=== PATIENT | female | born 1995 | race Two or more races ===

== ENCOUNTER 2022-12-06 12:20 | Emergency (ER) | payer BC, MEDICAID ==
[~2022-12-06] VITALS: Ht 167.6 cm; Wt 65.0 kg
[2022-12-06] MEDS ORDERED: HYDROcodone-ACET 5/325MG TAB PO ONE (12:30)
[2022-12-06 12:37] VITALS: BP 136/97; PULSE 104; RESP 19; TEMP 98.7; O2SAT 94
[2022-12-06] MEDS ORDERED: IBUP1TAB5 PO (13:19)
[2022-12-06] MEDS ORDERED: MUPI2OIN2 EX (13:19)
[2022-12-06] MEDS ORDERED: CYCL-611 PO (13:19)
[2022-12-09] MEDS ORDERED: CEPH500C PO (15:01)
[2022-12-09] MEDS ORDERED: HYDR-4902 PO (15:45)
== END 2022-12-06 13:13 | disposition home or self-care (01) ==
LOC: ER 12:20
DX: S43.402A Unspecified sprain of left shoulder joint, initial encounter (principal); S46.912A Strain of unspecified muscle, fascia and tendon at shoulder and upper arm level, left arm, initial encounter; S70.02XA Contusion of left hip, initial encounter; M75.32 Calcific tendinitis of left shoulder; Z88.0 Allergy status to penicillin; V29.99XA Rider (driver) (passenger) of other motorcycle injured in unspecified traffic accident, initial encounter; Y93.55 Activity, bike riding; Y92.89 Other specified places as the place of occurrence of the external cause; Y99.8 Other external cause status
CPT/HCPCS: 73030; 73060